=== PATIENT | female | born 1950 | race Caucasian/White ===

== ENCOUNTER 2019-08-02 10:47 | Outpatient (CLI) | payer OTHER | END 2019-08-02 10:48 | disposition home or self-care (01) | LOC: DTY/OP 10:47 | PROVIDERS: ATTEND Surgery | DX: E66.01 Morbid (severe) obesity due to excess calories (principal) | CPT/HCPCS: 97802 ==

== ENCOUNTER 2019-09-07 09:24 | Outpatient (CLI) | payer MEDICARE, OTHER ==
[2019-09-07 14:45] LABS: #Basophils 0.1 thou/uL (0.0-0.2); #Eosinphils 0.2 thou/uL (0.0-0.7); #Lymphocytes 2.2 thou/uL (1.20-3.40); #Monocytes 0.7 thou/uL (0.11-0.59); #Neutrophils 8.5 thou/uL (1.40-6.50); %Basophils 0.8 % (0.0-1.0); %Eosinophils 1.6 % (0.0-10.0); %Lymphocytes 18.8 % (21.0-51.0); %Monocytes 5.9 % (0.0-10.0); %Neutrophils 72.9 % (42.0-75.0); Hemoglobin 14.8 g/dL (12.0-16.0); Mean Corpuscular HGB CONC 33.7 g/dL (32.0-36.0); Mean Corpuscular Hemoglobin 30.2 pg (27.0-31.0); Mean Corpuscular Volume 89.6 fL (78.0-98.0); Mean Platelet Volume 8.7 fL (7.4-10.4); Platelet Count 275 thou/uL (130-400); RBC Distribution Width 13.9 % (11.5-14.5); White Blood Cell (WBC) Count 11.7 thou/uL (4.8-10.8)
--- NOTE | 2019-09-07 14:52 | RAD ---
PA AND LATERAL CHEST: HISTORY: Preop evaluation. FINDINGS: The heart size is borderline. No lobar consolidation, pneumothoraces or pleural effusions are seen. P rominent interstitial markings are likely chronic. There are degenerative changes in the spine. POS: OFF
[2019-09-07 15:05] LABS: Hemoglobin A1c 5.1 % (4.0-6.0)
[2019-09-07 15:10] LABS: ALT (SGPT) 29 U/L (8-55); AST (SGOT) 25 U/L (5-34); Albumin 4.7 g/dL (3.4-4.8); Alkaline Phosphatase 110 U/L (40-110); Anion Gap 11 mmol/L (10-20); BUN (Urea Nitrogen) 19 mg/dL (9.8-20.1); Bilirubin, Direct 0.3 mg/dL (0.1-0.3); Bilirubin, Total 0.7 mg/dL (0.2-1.2); Calc. Creatinine Clearance 0 mL/min (70-130); Carbon Dioxide 27 mmol/L (23-31); Chloride 103 mmol/L (98-107); Estimated GFR-MDRD 58; Globulin 2.6 g/dL (2.4-3.5); Glucose 99 mg/dL (80-115); Potassium 4.3 mmol/L (3.5-5.1); Protein, Total 7.3 g/dL (6.0-8.3); Sodium 137 mmol/L (136-145)
== END 2019-09-07 09:25 | disposition home or self-care (01) ==
LOC: LABBT 09:24
PROVIDERS: ATTEND Surgery
DX: Z01.818 Encounter for other preprocedural examination (principal); I51.9 Heart disease, unspecified; Z68.35 Body mass index [BMI] 35.0-35.9, adult
CPT/HCPCS: 71046; 80053; 80076; 83036; 85025

== ENCOUNTER 2019-09-07 13:30 | Inpatient (IN) | payer MEDICARE, OTHER ==
[2019-09-07 13:44] VITALS: BMI 48.4
[2019-09-21] MEDS ORDERED: Heparin 5,000 UNITS/ML VIAL ONE (08:10)
[2019-09-21] MEDS ORDERED: Levofloxacin 500 mg/D5W 100 ml Premix Bag ONE (08:23)
[2019-09-21] MEDS ORDERED: Famotidine/PF 20 mg/2ml Vial ONE (08:49)
[2019-09-21] MEDS ORDERED: Fentanyl 100 MCG/2 ML VIAL ONE ×2 (08:49→11:03)
[2019-09-21] MEDS ORDERED: Lidocaine 1% w/Epinephrine 1:100K 20 ML VIAL ONE (08:53)
[2019-09-21] MEDS ORDERED: Bupivacaine 0.25% HCL 30 ML VIAL ONE (08:53)
[2019-09-21] MEDS ORDERED: SUGAMMADEX SODIUM 500 MG/5 ML VIAL ONE (08:58)
[2019-09-21] MEDS ORDERED: Scopolamine 1.5 mg/72 hour Patch ONE (08:59)
[2019-09-21] MEDS ORDERED: ePHEDrine/0.9% NaCl/PF SYRINGE 50 mg/10 ml ONE (09:58)
[2019-09-21] MEDS ORDERED: Lidocaine 1% PF 5 ML VIAL ONE (09:58)
[2019-09-21] MEDS ORDERED: Rocuronium Bromide 10 MG/ML (10ML VIAL) ONE (09:58)
[2019-09-21] MEDS ORDERED: Ketorolac Tromethamine 30 MG/ML VIAL ONE (09:58)
[2019-09-21] MEDS ORDERED: Metoclopramide HCl 10 MG/2 ML VIAL ONE (09:58)
[2019-09-21] MEDS ORDERED: PROPOFOL 200 MG/20 ML VIAL ONE (09:58)
[2019-09-21] MEDS ORDERED: Dexamethasone 20 MG/5 ML VIAL ONE (09:58)
[2019-09-21] MEDS ORDERED: Ondansetron PF 4 MG/2 ML Vial ONE (09:58)
[2019-09-21] MEDS ORDERED: fentaNYL Citrate/PF 2,000 MCG in Sodium Chloride 0.9% 60 ML IV PRN (11:00)
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
--- NOTE | 2019-09-21 11:42 | OP ---
DATE OF PROCEDURE: 09/21/2019 PREOPERATIVE DIAGNOSIS: Morbid obesity. PROCEDURE PERFORMED: Laparoscopic sleeve gastrectomy with esophagogastroscopy. INDICATIONS: This is a 69-year-old female, morbidly obese, who has attempted multiple weight loss programs without success. FINDINGS: A 38-Sinhala bougie used. DESCRIPTION OF PROCEDURE: After informed consent was obtained, the patient was taken to the operating room and given general endotracheal anesthesia. She was placed in the supine position. Abdomen was prepped and draped in usual fashion. Local anesthesia was infiltrated subcutaneously and deep and a 12-mm incision was performed approximately 8 inches above the xiphoid slightly to the left. Veress needle was inserted. Drop test was performed. Pneumoperitoneum was created to a volume of 2 L of carbon dioxide. Utilizing a bladeless 12-mm trocar and 0-degree laparoscope, direct visual entry into the abdominal cavity was performed. Pneumoperitoneum was created to a pressure of 15 mmHg. The patient was placed in a steep reverse Trendelenburg position. Beronica liver retractor was inserted. Left lobe of the liver was retracted superiorly. Pylorus was identified. A 12-mm port placed on the right beneath it and two 12s were placed in the left subcostal. The omentum was taken off the greater curvature 5 cm from the pylorus utilizing the LigaSure. Short gastrics divided with LigaSure. Left crura defined with LigaSure. A 38-Sinhala bougie inserted and directed into the antrum. The linear 60-mm green load stapler used to divide the antrum to the bougie, gold load along the bougie, and a series of blues through the angle of His. Intraoperative endoscopy was performed. The video endoscope was inserted under direct vision and advanced into the sleeve. The staple line was inspected. There was no bleeding. Staple line was then tested by inflating the new stomach with pressurized air under water. There was no air leak. Stomach was decompressed. Scope was removed. The remnant stomach removed from the abdomen through the left lateral port site. The fascia was closed with interrupted 0 Vicryl suture and the GraNee needle. Trocars and retractors were removed. Skin was closed with interrupted 4-0 Rapide. Dermabond applied. The patient tolerated the procedure well, transferred to Recovery in good condition. Sponge and needle count verified correct x2. Job ID: [id number]
[2019-09-21] MEDS ORDERED: Ondansetron PF 4 MG/2 ML Vial SLOW IVP PRN (14:31)
[2019-09-21] MEDS: D5 1/2 NS w/20 mEq KCL 1,000 ML IV SCH ×2 (14:54→22:59)
[2019-09-21] MEDS ORDERED: Amiodarone 200 MG TAB PO SCH (21:00)
[2019-09-22 05:36] LABS: #Lymphocytes 0.9 thou/uL (1.20-3.40); #Monocytes 0.8 thou/uL (0.11-0.59); #Neutrophils 14.9 thou/uL (1.40-6.50); %Basophils 0.2 % (0.0-1.0); %Eosinophils 0.2 % (0.0-10.0); %Lymphocytes 5.4 % (21.0-51.0); %Monocytes 4.8 % (0.0-10.0); %Neutrophils 89.4 % (42.0-75.0); Hemoglobin 11.1 g/dL (12.0-16.0); Mean Corpuscular HGB CONC 33.4 g/dL (32.0-36.0); Mean Corpuscular Hemoglobin 30.3 pg (27.0-31.0); Mean Corpuscular Volume 90.9 fL (78.0-98.0); Mean Platelet Volume 8.7 fL (7.4-10.4); Platelet Count 250 thou/uL (130-400); RBC Distribution Width 13.6 % (11.5-14.5); Red Blood Cell (RBC) Count 3.66 mill/uL (4.20-5.40); White Blood Cell (WBC) Count 16.7 thou/uL (4.8-10.8)
[2019-09-22 06:01] LABS: Anion Gap 9 mmol/L (10-20); BUN (Urea Nitrogen) 10 mg/dL (9.8-20.1); Calc. Creatinine Clearance 109 mL/min (70-130); Calcium 8.5 mg/dL (7.8-10.44); Carbon Dioxide 23 mmol/L (23-31); Chloride 106 mmol/L (98-107); Estimated GFR-MDRD 64; Glucose 245 mg/dL (80-115); Potassium 4.6 mmol/L (3.5-5.1); Sodium 133 mmol/L (136-145)
[2019-09-22] MEDS: D5 1/2 NS w/20 mEq KCL 1,000 ML IV SCH (06:27)
[2019-09-22] MEDS ORDERED: Enoxaparin Sodium 40 MG/0.4 ML SYRINGE SC SCH (09:00)
[2019-09-22] MEDS ORDERED: Pantoprazole 40 MG VIAL IVP SCH (09:00)
--- NOTE | 2019-09-22 10:47 | RAD ---
Exam: 30 mL Gastrografin single contrast modified upper GI HISTORY: History of gastric sleeve procedure Exposure: 0.4 minutes; 1011 mcg/sq m FINDINGS: 30 cc of Gastrografin passed without difficulty from the esophagus into the residual stomac h. No leak or extravasation. Contrast opacifies small bowel loops. IMPRESSION: No leak or extravasation.
[2019-09-22 11:19] VITALS: BP 101/69; TEMP 97.8
--- NOTE | 2019-09-22 14:09 | DIS ---
DATE OF ADMISSION: 09/21/2019 DATE OF DISCHARGE: 09/22/2019 DISCHARGE DIAGNOSIS: Morbid obesity. PROCEDURES DURING ADMISSION: Laparoscopic sleeve gastrectomy, intraoperative esophagogastroscopy, and postoperative Gastrografin swallow. HOSPITAL COURSE: The patient was admitted, taken to the operating room, where she underwent a sleeve gastrectomy. Postoperatively, she has done well. The x-ray was fine. She was started on liquids. She is tolerating them well. She is discharged home on hydrocodone and Zofran. She will follow up with me in 2 weeks. Job ID: [id number]
== END 2019-09-22 13:33 | disposition home or self-care (01) | DRG 621 ==
LOC: SURG A 09-21 06:50 → SJJU 09-21 14:14
PROVIDERS: ADMIT Surgery; ATTEND Surgery
PROC: 0DB64Z3 Excision of Stomach, Percutaneous Endoscopic Approach, Vertical (ICD-10-PCS; principal; 2019-09-21)
PROC: 0DJ68ZZ Inspection of Stomach, Via Natural or Artificial Opening Endoscopic (ICD-10-PCS; 2019-09-21)
DX: E66.01 Morbid (severe) obesity due to excess calories (principal); J45.909 Unspecified asthma, uncomplicated; Z90.49 Acquired absence of other specified parts of digestive tract; Z90.89 Acquired absence of other organs; Z88.0 Allergy status to penicillin; Z68.42 Body mass index [BMI] 45.0-49.9, adult
CPT/HCPCS: 36415; 74241; 80048; 85025; 88307; 88312; C9113; J0131; J1100; J1644; J1650; J1885; J1956; J2001; J2405; J2704; J2765; J3010; S0020; S0028

== ENCOUNTER 2023-01-27 06:15 | Day surgery (SDC) | payer MEDICARE, OTHER ==
[2023-01-22 12:29] VITALS: BMI 28.9
[2023-01-27] MEDS ORDERED: Heparin 10,000 UNITS/ 10 ML VIAL ONE ×4 (06:49→10:58)
[2023-01-27] MEDS ORDERED: Dehydrated Alcohol 99% 5 ML VIAL ONE (07:10)
[2023-01-27] MEDS ORDERED: Famotidine/PF 20 mg/2ml Vial ONE (07:20)
[2023-01-27] MEDS ORDERED: PHENYLEPHRINE-NS 100 MCG/ML 10 ML SYRINGE ONE (07:20)
[2023-01-27] MEDS ORDERED: fentaNYL 50 mcg/mL 1 mL Vial ONE (07:20)
[2023-01-27] MEDS ORDERED: Ondansetron PF 4 MG/2 ML Vial ONE (08:12)
[2023-01-27] MEDS ORDERED: PROPOFOL 200 MG/20 ML VIAL ONE (08:12)
[2023-01-27] MEDS ORDERED: Dexamethasone 20 MG/5 ML VIAL ONE (08:12)
[2023-01-27] MEDS ORDERED: Rocuronium Bromide 10 MG/ML (10ML VIAL) ONE (08:12)
[2023-01-27] MEDS ORDERED: Lidocaine 1% PF 5 ML VIAL ONE (08:12)
[2023-01-27] MEDS ORDERED: Phenylephrine 10 MG/ML VIAL ONE (08:12)
[2023-01-27] MEDS ORDERED: Vecuronium 10 MG VIAL ONE (08:12)
[2023-01-27] MEDS ORDERED: Heparin 25,000 units/D5W 500 ML ONE (08:56)
[2023-01-27] MEDS ORDERED: Protamine Sulfate 50 MG/5 ML VIAL ONE (11:29)
[2023-01-27] MEDS ORDERED: SUGAMMADEX SODIUM 200 MG/2 ML VIAL ONE (11:32)
== END 2023-01-27 14:43 | disposition home or self-care (01) ==
LOC: SDC 06:15
PROVIDERS: ATTEND Internal Medicine Cardiovascular Disease
PROC: B246ZZ4 Ultrasonography of Right and Left Heart, Transesophageal (ICD-10-PCS; principal; 2023-01-27)
PROC: 02583ZZ Destruction of Conduction Mechanism, Percutaneous Approach (ICD-10-PCS; 2023-01-27)
PROC: 02K83ZZ Map Conduction Mechanism, Percutaneous Approach (ICD-10-PCS; 2023-01-27)
PROC: 4A023FZ Measurement of Cardiac Rhythm, Percutaneous Approach (ICD-10-PCS; 2023-01-27)
PROC: 4A0234Z Measurement of Cardiac Electrical Activity, Percutaneous Approach (ICD-10-PCS; 2023-01-27)
DX: I48.0 Paroxysmal atrial fibrillation (principal); I48.4 Atypical atrial flutter; I51.7 Cardiomegaly; I34.0 Nonrheumatic mitral (valve) insufficiency; J45.909 Unspecified asthma, uncomplicated; E03.9 Hypothyroidism, unspecified; Z79.01 Long term (current) use of anticoagulants; Z79.890 Hormone replacement therapy; Z79.899 Other long term (current) drug therapy; Z88.0 Allergy status to penicillin
CPT/HCPCS: 33228; 85347 ×2; 93005; 93312; 93655; 93656; 93657; J3010; J1100; J1644; J2370; J2405; J2704; J2720; S0028

== ENCOUNTER 2023-10-01 12:11 | Outpatient (CLI) | payer MEDICARE, OTHER | END 2023-10-01 12:12 | disposition home or self-care (01) | LOC: BICCT 12:11 | PROVIDERS: ATTEND Internal Medicine Critical Care Medicine | DX: J84.9 Interstitial pulmonary disease, unspecified (principal); I28.1 Aneurysm of pulmonary artery; J98.4 Other disorders of lung | CPT/HCPCS: 71250 ==

== ENCOUNTER 2024-10-17 08:03 | Day surgery (SDC) | payer MEDICARE, OTHER ==
[2024-10-14 10:48] VITALS: BMI 26.4
[2024-10-17 09:34] LABS: #Basophils 0.05 10x3/uL (0.0-0.2); %Basophils 0.8 % (0.0-1.0); %Eosinophils 2.7 % (0.0-10.0); %Monocytes 7.1 % (0.0-10.0); %Neutrophils 64.1 % (42.0-75.0); Hematocrit 40.9 % (36.0-47.0); Hemoglobin 12.5 g/dL (12.0-16.0); Mean Corpuscular HGB CONC 30.6 g/dL (32.0-36.0); Mean Corpuscular Volume 85.2 fL (78.0-98.0); Mean Platelet Volume 10.7 fL (7.4-10.4); Platelet Count 233 10x3/uL (130-400); RBC Distribution Width 16.9 % (11.5-14.5)
[2024-10-17 09:50] LABS: INR-International Normal Ratio 1.1; PTT 30.3 sec (22.9-36.1); Prothrombin Time 14.6 sec (12.0-14.7)
[2024-10-17 09:56] LABS: Anion Gap 14 mmol/L (10-20); BUN (Urea Nitrogen) 12 mg/dL (9.8-20.1); Calc. Creatinine Clearance 68 mL/min (70-130); Calcium 8.9 mg/dL (7.8-10.44); Carbon Dioxide 24 mmol/L (23-31); Chloride 107 mmol/L (98-107); Estimated GFR 90; Glucose 85 mg/dL (83-110); Potassium 4.3 mmol/L (3.5-5.1); Sodium 141 mmol/L (136-145)
[2024-10-17] MEDS ORDERED: PROPOFOL 200 MG/20 ML VIAL ONE (10:37)
[2024-10-17] MEDS ORDERED: Lidocaine 1% PF 5 ML VIAL ONE (10:37)
== END 2024-10-17 12:55 | disposition home or self-care (01) ==
LOC: SDC 08:03
PROVIDERS: ATTEND Internal Medicine Cardiovascular Disease
PROC: B246ZZZ Ultrasonography of Right and Left Heart (ICD-10-PCS; principal; 2024-10-17)
DX: I48.0 Paroxysmal atrial fibrillation (principal); I48.3 Typical atrial flutter; J45.909 Unspecified asthma, uncomplicated; E03.9 Hypothyroidism, unspecified; Z86.711 Personal history of pulmonary embolism; Z88.0 Allergy status to penicillin; Z88.8 Allergy status to other drugs, medicaments and biological substances; Z79.899 Other long term (current) drug therapy; Z98.890 Other specified postprocedural states
CPT/HCPCS: 80048; 85025; 85610; 85730; 93312; J2704